=== PATIENT | female | born 1990 | race Caucasian/White ===

== ENCOUNTER 2016-04-07 21:11 | Emergency (ER) | payer OTHER ==
[2016-04-07 21:16] VITALS: TEMP 97.8
[2016-04-07] MEDS ORDERED: ONDANSETRON ODT 4 MG TAB PO STA (21:26)
--- NOTE | 2016-04-07 21:31 | ED ---
General Adult HPI - General Chief complaint: Nausea/Vomiting/Diarrhea Stated complaint: vomiting/diarrhea Time Seen by Provider: 04/07/16 21:19 Source: patient, RN notes reviewed Mode of arrival: ambulatory Limitations: no limitations - History of Present Illness Initial comments: This is a 25-year-old female who presents with nausea and vomiting since yesterday. Patient denies any fever/chills, cough, congestion, headache or sore throat or otalgia. Patient states she had one episode of diarrhea today but she has a history of IBS. Patient denies any hematochezia or hematuria or hematemesis. Patient denies any abdominal pain. Patient states she is having difficulty keeping fluids down and was concerned about this. Patient denies any chance of being as she has a female partner. Patient denies any recent fever, chills, shortness breath, chest pain, back pain, numbness, tingling, headache, or visual changes, or any other complaints. - Related Data Home Medications Medication Instructions Recorded Confirmed HYDROcodone/APAP 5-325MG [Tiline 5] 1 each PO Q6HR PRN 10/25/14 04/07/16 Cyclobenzaprine [Flexeril] 10 mg PO HS 08/20/15 04/07/16 Gabapentin [Neurontin] 300 mg PO TID 08/20/15 04/07/16 Butalb/Acetaminophen/Caffeine 1 cap PO DAILY PRN 04/07/16 04/07/16 [Fioricet 50-300-40 mg Capsule] Cetirizine HCl [Zyrtec] 10 mg PO DAILY 04/07/16 04/07/16 Dicyclomine [Bentyl] 10 mg PO QID 04/07/16 04/07/16 Ibuprofen [Motrin] 800 mg PO Q6HR PRN 04/07/16 04/07/16 Omeprazole 20 mg PO DAILY 04/07/16 04/07/16 Previous Rx's Medication Instructions Recorded Ondansetron Odt [Zofran Odt] 4 mg PO Q8H 3 Days 04/07/16 Allergies Allergy/AdvReac Type Severity Reaction Status Date / Time No Known Allergies Allergy Verified 04/07/16 21:15 Review of Systems ROS Statement: Those systems with pertinent positive or pertinent negative responses have been documented in the HPI. ROS Other: All systems not noted in ROS Statement are negative. Past Medical History Additional Past Medical History / Comment(s): chronic back pain, current sinus infection History of Any Multi-Drug Resistant Organisms: None Reported Past Surgical History: Tonsillectomy Past Psychological History: No Psychological Hx Reported Smoking Status: Never smoker Past Alcohol Use History: Rare Past Drug Use History: None Reported General Exam - General Exam Comments Initial Comments: General: The patient is awake and alert, in no distress, and does not appear acutely ill. Eye: Pupils are equal, round and reactive to light, extra-ocular movements are intact. No nystagmus. There is normal conjunctiva bilaterally. No signs of icterus. Ears: TMs pink and pearly with intact cone of light bilaterally. Normal external ear canals Nose: Nasal turbinates pink and moist Mouth and throat: There are moist mucous membranes and no oral lesions. Neck: The neck is supple, there is no tenderness or JVD. Cardiovascular: There is a regular rate and rhythm. No murmur, rub or gallop is appreciated. Respiratory: Lungs are clear to auscultation, respirations are non-labored, breath sounds are equal. No wheezes, stridor, rales, or rhonchi. Gastrointestinal: Soft, non-distended, non-tender abdomen without masses or organomegaly noted. There is no rebound or guarding present. No CVA tenderness. Bowel sounds are unremarkable. Musculoskeletal: Normal ROM, no tenderness. Strength 5/5. Sensation intact. Radial Pulses equal bilaterally 2+. Neurological: A&O x 3. CN II-XII intact, There are no obvious motor or sensory deficits. Coordination appears grossly intact. Speech is normal. Skin: Skin is warm and dry and no rashes or lesions are noted. Psychiatric: Cooperative, appropriate mood & affect, normal judgment. Limitations: no limitations Course Vital Signs 04/07/16 21:13 Temperature 97.8 F Pulse Rate 124 H Respiratory 18 Rate Blood Pressure 121/90 O2 Sat by Pulse 97 Oximetry Medical Decision Making - Medical Decision Making This is a 25-year-old female presents with vomiting that started yesterday. On physical exam abdomen is soft, nontender and nondistended with no guarding or rigidity. Mucous membranes are moist. Patient is afebrile in the EC today. Patient was given a dose of Zofran in the EC. A urinalysis and influenza were checked and both were negative for any acute processes. Elevated red blood cells in the urine noted and patient states she was on her menstrual cycle last week. I discussed the patient will be sent home with a prescription for Zofran. Patient tolerated oral fluids in the EC. Patient had no episodes of emesis in the EC today. I discussed that patient should be sure to drink plenty of fluids. I discussed return parameters. Discussed that this is most likely a virus. I discussed that the patient is to follow-up with her primary care physician in one to 2 days or return to the EC for any worsening symptoms or for any further concerns. - Lab Data Lab Results 04/07/16 04/07/16 Range/Units 21:35 21:40 Urine Color Yellow Urine Appearance Cloudy H (Clear) Urine pH 5.5 (5.0-8.0) Ur Specific [place] 1.026 (1.001-1.035) Urine Protein Trace H (Negative) Urine Glucose (UA) Negative (Negative) Urine Ketones Negative (Negative) Urine Blood Moderate H (Negative) Urine Nitrate Negative (Negative) Urine Bilirubin Negative (Negative) Urine Urobilinogen <2.0 (<2.0) mg/dL Ur Leukocyte Esterase Trace H (Negative) Urine RBC 22 H (0-5) /hpf Urine WBC 9 H (0-5) /hpf Ur Squamous Epith Cells 9 H (0-4) /hpf Urine Bacteria Rare H (None) /hpf Urine Mucus Rare H (None) /hpf Influenza Type A RNA Not Detected (Not Detectd) Influenza Type B (PCR) Not Detected (Not Detectd) Disposition Clinical Impression: Nausea & vomiting Disposition: HOME SELF-CARE Condition: Good Instructions: Acute Nausea and Vomiting (ED) Additional Instructions: Please use Zofran as prescribed. Please be sure to drink plenty of fluids. Please follow-up with your primary care physician in one to 2 days or return to the EC for any worsening symptoms or for any further concerns. Prescriptions: Ondansetron Odt [Zofran Odt] 4 mg PO Q8H 3 Days Referrals: Jose Ferrara Jr, [Primary Care Provider] - 1-2 days Time of Disposition: 22:45
[2016-04-07 21:51] LABS: Appearance,Urine Cloudy (Clear); Bacteria,Urine Rare /hpf; Bilirubin,Urine Negative (Negative); Glucose,Urine (UA) Negative (Negative); Ketones,Urine Negative (Negative); Leukocyte Esterase,Urine Trace (Negative); Mucus,Urine Rare /hpf; Nitrite,Urine Negative (Negative); PH, Urine 5.5 (5.0-8.0); Particle Count 9171; Protein,Urine Trace (Negative); RBC,Urine 22 /hpf (0-5); Specific Gravity,Urine 1.026 (1.001-1.035); Squamous Epithelial Cell,Urine 9 /hpf (0-4); UA Billing (MACRO vs. MICRO) MICRO; Urobilinogen,Urine <2.0 mg/dL (<2.0); WBC,Urine 9 /hpf (0-5)
[2016-04-07 23:14] VITALS: BP 130/70; PULSE 70; RESP 16
== END 2016-04-07 23:13 | disposition home or self-care (01) ==
LOC: EC 21:11
DX: R11.2 Nausea with vomiting, unspecified (principal); K58.9 Irritable bowel syndrome, unspecified; Z79.899 Other long term (current) drug therapy
CPT/HCPCS: 81001; 87086; 87502; 99284